=== PATIENT | male | born 1935 | race Caucasian/White ===

== ENCOUNTER → 2016-08-20 | Outpatient (CLI) | payer MEDICARE, OTHER | END | disposition home or self-care (01) | LOC: PCVCCLINIC 14:06 | PROVIDERS: ATTEND Internal Medicine | DX: I10 Essential (primary) hypertension (principal); I47.2 Ventricular tachycardia; I65.29 Occlusion and stenosis of unspecified carotid artery; I28.1 Aneurysm of pulmonary artery; E78.00 Pure hypercholesterolemia, unspecified; G47.33 Obstructive sleep apnea (adult) (pediatric); E78.5 Hyperlipidemia, unspecified; Z95.2 Presence of prosthetic heart valve; Z79.82 Long term (current) use of aspirin; Z79.899 Other long term (current) drug therapy | CPT/HCPCS: 80061; 93005; G0463 ==

== ENCOUNTER → 2017-08-11 | Outpatient (CLI) | payer MEDICARE, OTHER | END | disposition home or self-care (01) | LOC: PCVCCLINIC 08:00 | DX: R07.2 Precordial pain (principal); I28.1 Aneurysm of pulmonary artery; I10 Essential (primary) hypertension; E78.5 Hyperlipidemia, unspecified; I65.23 Occlusion and stenosis of bilateral carotid arteries; I49.3 Ventricular premature depolarization; G47.33 Obstructive sleep apnea (adult) (pediatric); Z95.2 Presence of prosthetic heart valve; Z79.82 Long term (current) use of aspirin | CPT/HCPCS: 93005; G0463 ==

== ENCOUNTER → 2017-08-13 | Outpatient (CLI) | payer MEDICARE, OTHER | END | disposition home or self-care (01) | LOC: PCVCIMAG 15:47 | DX: I08.3 Combined rheumatic disorders of mitral, aortic and tricuspid valves (principal); I10 Essential (primary) hypertension; E78.5 Hyperlipidemia, unspecified; G47.33 Obstructive sleep apnea (adult) (pediatric) | CPT/HCPCS: 93306 ==

== ENCOUNTER → 2017-08-21 | Outpatient (CLI) | payer MEDICARE, OTHER ==
[~2017-08-21] MED LIST: REGADENOSON 0.4 MG/5 ML DISP.SYRIN. IV
== END | disposition home or self-care (01) ==
LOC: PCVCIMAG 07:50
DX: I10 Essential (primary) hypertension (principal); I65.23 Occlusion and stenosis of bilateral carotid arteries; R07.9 Chest pain, unspecified; R20.0 Anesthesia of skin
CPT/HCPCS: 78452; 93017; 93880; A9500; J2785

== ENCOUNTER → 2017-12-05 | Outpatient (CLI) | payer MEDICARE, OTHER | END | disposition home or self-care (01) | LOC: PCVCCLINIC 13:47 | PROVIDERS: ATTEND Internal Medicine | DX: I28.1 Aneurysm of pulmonary artery (principal); I10 Essential (primary) hypertension; E78.5 Hyperlipidemia, unspecified; I65.23 Occlusion and stenosis of bilateral carotid arteries; I49.3 Ventricular premature depolarization; G47.33 Obstructive sleep apnea (adult) (pediatric); R07.2 Precordial pain; Z95.2 Presence of prosthetic heart valve; Z79.82 Long term (current) use of aspirin | CPT/HCPCS: 80061; 93005; G0463 ==

== ENCOUNTER → 2018-06-15 | Outpatient (CLI) | payer MEDICARE, OTHER ==
--- NOTE | 2018-06-15 15:46 | PCVCIMAG ---
APPROVED REPORT Study performed: 06/15/2018 14:10:47 EXAM: Comprehensive 2D, Doppler, and color-flow Echocardiogram Patient Location: Echo lab Room #: 3Status: routine BSA: 2.00 HR: 66 bpmBP: 116/60 mmHg Rhythm: NSR Other Information Study Quality: Good Risk Factors: Cardiac Risk Factors: HTN, Hyperlipidemia Indications Prosthetic Valve Pulmonary Artery Anuerysm Bioprosthetic Aortic Valve 2D Dimensions IVSd: 12.81 (7-11mm)LVOT Diam: 22.00 (18-24mm) LVDd: 50.20 mm PWd: 14.29 (7-11mm)Ascending Ao: 43.89 (22-36mm) LVDs: 35.20 (25-40mm) Left Atrium: 41.51 (27-40mm) Aortic Root: 32.97 mm LV Single Plane 4CH: 59.48 % LV Single Plane 2CH: 62.39 % Biplane EF: 61.3 % Volumes Left Atrial Volume (Systole) Single Plane 4CH: 77.87 mLSingle Plane 2CH: 46.14 mL LA ESV Index: 31.00 mL/m2 Aortic Valve AoV Peak Skyler.: 3.21 m/s AO Peak Gr.: 41.21 mmHgLVOT Max P.91 mmHg AO Mean Gr.: 25.97 mmHgLVOT Mean P.80 mmHg AO V2 Mean: 2.49 m/sLVOT Max V: 1.11 m/s AO V2 VTI: 75.80 cmLVOT Mean V: 0.80 m/s HILDA (VTI): 1.24 [id number] V1 VTI: 25.10 cm HILDA Vmax: 1.29 cm2 AI Vmax: 4.40 m/sSV (LVOT): 93.99 mL AI [place]: 2.85 m/s2 AI PHT: 454.43 ms Mitral Valve E/A Ratio: 0.7 MV Decel. Time: 247.83 ms MV E Max Skyler.: 0.67 m/s MV A Skyler.: 1.03 m/s IVRT: 87.66 ms TDI E/Lateral E': 8.38E/Medial E': 9.57 Medial E' Skyler.: 0.07 m/s Lateral E' Skyler.: 0.08 m/s Pulmonary Valve PV Peak Skyler.: 1.60 m/sPV Peak Gr.: 10.28 mmHg Pulmonary Vein P Vein S: 0.58 m/sP Vein A: 0.26 m/s P Vein D: 0.58 m/sP Vein A Dur.: 83.0 msec P Vein S/D Ratio: 1.00 Tricuspid Valve TR Peak Skyler.: 2.51 m/sRAP Estimate: 7.00 mmHg TR Peak Gr.: 25.25 mmHg PA Pressure: 32.00 mmHg Left Ventricle The left ventricle is normal size. There is normal LV segmental wall motion. Mild concentric left ventricular hypertrophy. Left ventricular systolic function is normal. The left ventricular ejection fraction is within the normal range. LVEF is 55-60%. Mild diastolic dysfunction is present (impaired relaxation pattern). Right Ventricle The right ventricle is normal size. The right ventricular systolic function is normal. Atria The left atrium size is normal. Right atrium is dilated. Aortic Valve Bioprosthetic aortic valve, trileaflet, mildly calcified. Mild aortic regurgitation. The maximum pressure gradient is 32 mmHg and the mean pressure gradient is 20 mmHg. The calculated aortic valve area is 1.2 cm2. Mitral Valve The mitral valve is normal in structure. Mild mitral regurgitation. No evidence of mitral valve stenosis. Tricuspid Valve The tricuspid valve is normal in structure. The pulmonary artery pressure is 30 mmHg. Pulmonic Valve The pulmonary valve is normal in structure. Trace pulmonic regurgitation. Great Vessels The aortic root is normal in size. The ascending aorta measures 4.4 cm. IVC is normal in size and collapses >50% with inspiration. 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 <Conclusion> Left ventricular systolic function is normal. There is normal LV segmental wall motion. LVEF is 55-60%. Mild diastolic dysfunction Bioprosthetic aortic valve, trileaflet, mildly calcified. The maximum pressure gradient is 32 mmHg and the mean pressure gradient is 20 mmHg. The calculated aortic valve area is 1.2 cm2. Mild aortic regurgitation. The mitral valve is normal in structure. Mild mitral regurgitation. The pulmonary artery pressure is 30 mmHg. The ascending aorta measures 4.4 cm. 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
== END | disposition home or self-care (01) ==
LOC: PCVCIMAG 13:00
PROVIDERS: ATTEND Internal Medicine
DX: I08.0 Rheumatic disorders of both mitral and aortic valves (principal); I28.1 Aneurysm of pulmonary artery; I10 Essential (primary) hypertension; E78.5 Hyperlipidemia, unspecified; I65.23 Occlusion and stenosis of bilateral carotid arteries; I49.3 Ventricular premature depolarization; G47.33 Obstructive sleep apnea (adult) (pediatric); E78.00 Pure hypercholesterolemia, unspecified; Z95.2 Presence of prosthetic heart valve; Z79.82 Long term (current) use of aspirin
CPT/HCPCS: 93005; 93306; G0463